=== PATIENT | male | born 1985 | race Caucasian/White ===

== ENCOUNTER 2018-01-10 07:14 | Emergency (ER) | payer SELFPAY ==
[~2018-01-10] VITALS: Ht 170.2 cm; Wt 87.0 kg
[2018-01-10] MEDS ORDERED: ONDANSETRON 4MG ODT PO STA (07:51)
[2018-01-10] MEDS ORDERED: ONDANSETRON HCL 4MG/2ML VIAL IV STA (07:51)
[2018-01-10] MEDS ORDERED: BACITRACIN ZINC OINT UDPKT TOP ONE (08:00)
[2018-01-10] MEDS ORDERED: TETANUS, DIPHTHERIA, PERTUSSIS VAC/PF 0.5ML (>7YR OLD) IM ONE (08:00)
[2018-01-10] MEDS ORDERED: LIDOCAINE HCL 1%/EPI 1:200,000 30 ML VIAL MC ONE (08:00)
[2018-01-10] MEDS ORDERED: LIDOCAINE HCL/EPINEPHRINE 1%-EPI 1:100,000 50 ML VIAL INFIL NR (08:15)
[2018-01-10] MEDS ORDERED: MORPHINE SULFATE 4 MG/ML CPJ (NOT FOR IM USE) IV ONE (08:30)
[2018-01-10 11:40] VITALS: BP 142/74
== END 2018-01-10 11:42 | disposition home or self-care (01) ==
LOC: ER 07:14
DX: S01.01XA Laceration without foreign body of scalp, initial encounter (principal); S43.82XA Sprain of other specified parts of left shoulder girdle, initial encounter; R91.8 Other nonspecific abnormal finding of lung field; F17.210 Nicotine dependence, cigarettes, uncomplicated; Z71.6 Tobacco abuse counseling; Y00.XXXA Assault by blunt object, initial encounter; Y93.89 Activity, other specified; Y92.488 Other paved roadways as the place of occurrence of the external cause
CPT/HCPCS: 12002; 70450; 71045; 72125; 73030; 90471; 90715; 96374; 96375; 99284; 99406; J2270; J2405; J3490; Z7610; Q0162

== ENCOUNTER 2018-01-16 17:10 | Emergency (ER) | payer SELFPAY ==
[~2018-01-16] VITALS: Ht 165.1 cm; Wt 77.0 kg
[2018-01-16 17:36] VITALS: BP 132/79
== END 2018-01-16 18:15 | disposition home or self-care (01) ==
LOC: ER 17:10
DX: S01.01XD Laceration without foreign body of scalp, subsequent encounter (principal); F17.200 Nicotine dependence, unspecified, uncomplicated; X58.XXXD Exposure to other specified factors, subsequent encounter
CPT/HCPCS: 99281; Z7610